=== PATIENT | male | born 1980 | race African-American/Black ===

== ENCOUNTER 2023-02-17 18:13 | Emergency (ER) | payer OTHER ==
--- NOTE | 2023-02-17 18:17 | ED ---
Abdominal Pain HPI - General Source: patient, RN notes reviewed <Jo-Ann Savage - Last Filed: 02/17/23 18:16> - General Source: RN notes reviewed, old records reviewed Mode of arrival: EMS Limitations: no limitations - History of Present Illness MD Complaint: abdominal pain -: days(s) Location: epigastric Radiation: epigastric Migration to: epigastric Severity: severe Severity scale (1-10): 8 Quality: stabbing Consistency: constant Improves With: nothing Associated Symptoms: nausea, vomiting Treatments Prior to Arrival: other (0) <Glen Lux - Last Filed: 02/28/23 18:25> - General Stated Complaint: abd pain-pancreatitis Time Seen by Provider: 02/17/23 18:16 - History of Present Illness Initial Comments: Patient is a 42-year-old male presented ER with chief complaint of abdominal pain. Patient states he was recently released from hospital for further pancreatitis. Patient states he thinks it's coming back. Patient denies any fevers, chills, night sweats. He is endorsing some shortness of breath but denies chest pain. (Jo-Ann Savage) This is a 42-year-old male to the emergency department today for evaluation of severe abdominal pain with known history of pancreatitis and states pain that today is significant and similar to prior episodes of pancreatitis (Glen Lux) - Related Data Allergies Allergy/AdvReac Type Severity Reaction Status Date / Time lisinopril Allergy Unknown Verified 02/17/23 18:28 promethazine Allergy Unknown Verified 02/17/23 18:28 Review of Systems ROS Other: All systems not noted in ROS Statement are negative. <Jo-Ann Savage - Last Filed: 02/17/23 18:16> ROS Other: All systems not noted in ROS Statement are negative. <Glen Lux - Last Filed: 02/28/23 18:25> ROS Statement: Those systems with pertinent positive or pertinent negative responses have been documented in the HPI. General Exam <Jo-Ann Savage - Last Filed: 02/17/23 18:16> General appearance: alert, in no apparent distress, anxious Head exam: Present: atraumatic, normocephalic, normal inspection Eye exam: Present: normal appearance, PERRL, EOMI. Absent: scleral icterus, conjunctival injection, periorbital swelling ENT exam: Present: normal exam, mucous membranes moist Neck exam: Present: normal inspection. Absent: tenderness, meningismus, lymphadenopathy Respiratory exam: Present: normal lung sounds bilaterally. Absent: respiratory distress, wheezes, rales, rhonchi, stridor Cardiovascular Exam: Present: regular rate, normal rhythm, normal heart sounds. Absent: systolic murmur, diastolic murmur, rubs, gallop, clicks GI/Abdominal exam: Present: soft, distended, tenderness, guarding, normal bowel sounds. Absent: rebound, rigid Extremities exam: Present: normal inspection, full ROM, normal capillary refill. Absent: tenderness, pedal edema, joint swelling, calf tenderness Back exam: Present: normal inspection Neurological exam: Present: alert, oriented X3, CN II-XII intact Psychiatric exam: Present: normal affect, normal mood Skin exam: Present: warm, dry, intact, normal color. Absent: rash <Glen Lux - Last Filed: 02/28/23 18:25> - General Exam Comments Initial Comments: Visual Physical Exam Vital signs reviewed General:Nontoxic, patient is hunched over and appears in pain Head: Normocephalic, atraumatic Eyes: PERRLA, EOMI ENT: Airway patent Chest: Nonlabored breathing Skin: No visual rash, normal skin tone Neuro: Alert and oriented 3 Musculoskeletal: No gross abnormalities (Jo-Ann Savage) Course <Glen Lux - Last Filed: 02/28/23 18:25> Vital Signs 02/17/23 02/18/23 18:23 04:27 Temperature 97.7 F 98.1 F Pulse Rate 87 81 Respiratory 16 18 Rate Blood Pressure 142/102 138/102 O2 Sat by Pulse 100 98 Oximetry - Reevaluation(s) Reevaluation #1: 02/18/23 05:57 Records reviewed (Glen Lux) Reevaluation #2: 02/18/23 05:57 Patient's pain is improved (Glen Lux) Reevaluation #3: 02/18/23 05:57 Patient informed results questions answered (Glen Lux) Reevaluation #4: 02/18/23 05:58 Was pt. sent in by a medical professional or institution ([facility]I Montero, [employer]ER, urgent care, hospital, or correction...) When possible be specific @ -no Did you speak to anyone other than the patient for history (EMS, parent, family, police, friend...)? What history was obtained from this source @ -no Did you review nursing and triage notes (agree or disagree)? Why? @ -agree Are old charts reviewed (outside hosp., previous admission, EMS record, old EKG, old radiological studies, urgent care reports/EKG's, correction records)? Report findings @ -yes Differential Diagnosis (chest pain, altered mental status, abdominal pain women, abdominal pain men, vaginal bleeding, weakness, fever, dyspnea, syncope, headache, dizziness, GI bleed, back pain, seizure, CVA, palpatations, mental health, musculoskeletal)? @ -prior EKG interpreted by me (3pts min.). @ -yes X-rays interpreted by me (1pt min.). @ -no CT interpreted by me (1pt min.). @ -yes positive for edematous pancreatitis U/S interpreted by me (1pt. min.). @ -no What testing was considered but not performed or refused? (CT, X-rays, U/S, labs)? Why? @ -none What meds were considered but not given or refused? Why? @ -none Did you discuss the management of the patient with other professionals (professionals i.e. VICKI Montero, POT P[employer]ER, lab, RT, psych nurse, school social worker, production tool engineer, teacher, air crew officer, catalytic case operator)? Give summary @ -no Was smoking cessation discussed for >3mins.? @ -no Was critical care preformed (if so, how long)? @ -no Were there social determinants of health that impacted care today? How? (Homelessness, low income, unemployed, alcoholism, drug addiction, transportation, low edu. Level, literacy, decrease access to med. care, assisted, rehab)? @ -none Was there de-escalation of care discussed even if they declined (Discuss DNR or withdrawal of care, Hospice)? DNR status @ -no What co-morbidities impacted this encounter? (DM, HTN, Smoking, COPD, CAD, Cancer, CVA, ARF, Chemo, Hep., AIDS, mental health diagnosis, sleep apnea, morb id obesity)? @ -none Was patient admitted / discharged? Hospital course, mention meds given and rou te, prescriptions, significant lab abnormalities, going to OR and other pertinent info. @ - 42 male with significant acute pancreatitis computed tomography scan findings positive for pancreatic pseudocyst with edematous pancreatic disease of pancreatitis no transfer for nothing by mouth status and GI evaluation Transferred to [facility] Admitted Undiagnosed new problem with uncertain prognosis? @ -no Drug Therapy requiring intensive monitoring for toxicity (Heparin, Nitro, Insulin, Cardizem)? @ -no Were any procedures done? @ -no Diagnosis/symptom? @ -Abdominal pain with pancreatitis Acute, or Chronic, or Acute on Chronic? @ -Acute Uncomplicated (without systemic symptoms) or Complicated (systemic symptoms)? @ -Complicated Side effects of treatment? @ -no Exacerbation, Progression, or Severe Exacerbation? @ -exacerbation Poses a threat to life or bodily function? How? (Chest pain, [place], [place], pneumonia, PE, COPD, DKA, ARF, appy, cholecystitis, CVA, Diverticulitis, Homicidal, Suicidal, threat to staff... and all critical care pts) @ -yes significant pancreatitis (Glen Lux) Reevaluation #5: 02/18/23 05:57 Differential Abdominal Pain Men: Appendicitis, cholecystitis, diverticulosis, ischemic bowel, pancreatitis, hepatitis, UTI, gastroenteritis, AAA, incarcerated hernia, bowel obstruction, constipation, inflammatory bowel, hepatitis, peptic ulcer disease, splenic infarction, perforated viscus, testicular torsion, this is not meant to be an all-inclusive list (Glen Lux) - Consultations Consultation #1: spoke with [facility] who accepts this patient in transfer (Glen Lux) Medical Decision Making <Jo-Ann Savage - Last Filed: 02/17/23 18:16> - Lab Data Result diagrams: 02/17/23 20:11 02/17/23 20:11 - Radiology Data Radiology results: report reviewed (CT of the abdomen and pelvis is positive for edematous pancreatitis with pseudocyst), image reviewed <Glen Lux - Last Filed: 02/28/23 18:25> - Medical Decision Making I performed the quick note portion of the exam. Electronically signed by Jo-Ann Savage PA-C (Jo-Ann Savage) 42 male with significant acute pancreatitis computed tomography scan findings positive for pancreatic pseudocyst with edematous pancreatic disease of pancreatitis no transfer for nothing by mouth status and GI evaluation (Glen Lux) - Lab Data Lab Results 02/17/23 02/17/23 02/17/23 Range/Units 18:30 20:11 20:11 WBC 4.8 (3.8-10.6) k/uL RBC 4.01 L (4.30-5.90) m/uL Hgb 13.7 (13.0-17.5) gm/dL Hct 39.6 (39.0-53.0) % MCV 98.8 (80.0-100.0) fL MCH 34.2 (25.0-35.0) pg MCHC 34.7 (31.0-37.0) g/dL RDW 13.7 (11.5-15.5) % Plt Count 222 (150-450) k/uL MPV 8.4 Sodium 140 (137-145) mmol/L Potassium 3.8 (3.5-5.1) mmol/L Chloride 97 L (98-107) mmol/L Carbon Dioxide 31 H (22-30) mmol/L Anion Gap 12 mmol/L BUN 9 (9-20) mg/dL Creatinine 0.51 L (0.66-1.25) mg/dL Est GFR (CKD-EPI)AfAm >90 (>60 ml/min/1.73 sqM) Est GFR (CKD-EPI)NonAf >90 (>60 ml/min/1.73 sqM) Glucose 106 H (74-99) mg/dL Plasma Lactic Acid Zeeshan (0.7-2.0) mmol/L Calcium 10.2 (8.4-10.2) mg/dL Total Bilirubin 0.4 (0.2-1.3) mg/dL AST 45 (17-59) U/L ALT 24 (4-49) U/L Alkaline Phosphatase 79 (38-126) U/L Total Protein 8.4 H (6.3-8.2) g/dL Albumin 4.9 (3.5-5.0) g/dL Amylase 157 H (30-110) U/L Lipase 545 H (23-300) U/L Urine Color Yellow Urine Appearance Clear (Clear) Urine pH 8.0 (5.0-8.0) Ur Specific [place] 1.025 (1.001-1.035) Urine Protein Trace H (Negative) Urine Glucose (UA) Negative (Negative) Urine Ketones Negative (Negative) Urine Blood Negative (Negative) Urine Nitrite Negative (Negative) Urine Bilirubin Negative (Negative) Urine Urobilinogen 2.0 (<2.0) mg/dL Ur Leukocyte Esterase Negative (Negative) 02/17/23 Range/Units 20:11 WBC (3.8-10.6) k/uL RBC (4.30-5.90) m/uL Hgb (13.0-17.5) gm/dL Hct (39.0-53.0) % MCV (80.0-100.0) fL MCH (25.0-35.0) pg MCHC (31.0-37.0) g/dL RDW (11.5-15.5) % Plt Count (150-450) k/uL MPV Sodium (137-145) mmol/L Potassium (3.5-5.1) mmol/L Chloride (98-107) mmol/L Carbon Dioxide (22-30) mmol/L Anion Gap mmol/L BUN (9-20) mg/dL Creatinine (0.66-1.25) mg/dL Est GFR (CKD-EPI)AfAm (>60 ml/min/1.73 sqM) Est GFR (CKD-EPI)NonAf (>60 ml/min/1.73 sqM) Glucose (74-99) mg/dL Plasma Lactic Acid Zeeshan 1.1 (0.7-2.0) mmol/L Calcium (8.4-10.2) mg/dL Total Bilirubin (0.2-1.3) mg/dL AST (17-59) U/L ALT (4-49) U/L Alkaline Phosphatase (38-126) U/L Total Protein (6.3-8.2) g/dL Albumin (3.5-5.0) g/dL Amylase (30-110) U/L Lipase (23-300) U/L Urine Color Urine Appearance (Clear) Urine pH (5.0-8.0) Ur Specific [place] (1.001-1.035) Urine Protein (Negative) Urine Glucose (UA) (Negative) Urine Ketones (Negative) Urine Blood (Negative) Urine Nitrite (Negative) Urine Bilirubin (Negative) Urine Urobilinogen (<2.0) mg/dL Ur Leukocyte Esterase (Negative) Disposition <Jo-Ann Savage - Last Filed: 02/17/23 18:16> Is patient prescribed a controlled substance at d/c from ED?: No Time of Disposition: 04:30 - Out of Hospital Transfer - Req. Specs Out of Hospital Transfer - Requested Specifics: Other Emergency Center ([facility]) <Glen Lux - Last Filed: 02/28/23 18:25> Clinical Impression: Pancreatitis, Abdominal pain, Nausea & vomiting Disposition: OTHER INSTITUTION NOT DEFINED Condition: Fair Referrals: None,Stated [Primary Care Provider] - 1-2 days
[2023-02-17 18:55] LABS: Appearance,Urine Clear (Clear); Bilirubin,Urine Negative (Negative); Blood,Urine Negative (Negative); Color,Urine Yellow; Glucose,Urine (UA) Negative (Negative); Ketones,Urine Negative (Negative); Leukocyte Esterase,Urine Negative (Negative); Nitrite,Urine Negative (Negative); Protein,Urine Trace (Negative); Specific Gravity,Urine 1.025 (1.001-1.035)
--- NOTE | 2023-02-17 19:31 | CT ---
EXAMINATION TYPE: CT abdomen pelvis wo con CT DLP: 291.6 mGycm, Automated exposure control for dose reduction was used. DATE OF EXAM: 02/17/2023 7:21 PM COMPARISON: None. CLINICAL INDICATION:Male, 42 years old with history of pain; right side abd pain, hx of pancreatitis TECHNIQUE: Axial CT of the abdomen and pelvis. Sagittal and coronal reformats were created on a [employer] workstation. Contrast used: none if empty) Oral contrast used: without Oral Contrast (none if empty) FINDINGS: LOWER CHEST: Unremarkable ABDOMEN LIVER: Unremarkable GALLBLADDER AND BILE DUCTS: Unremarkable. PANCREAS: The pancreatic head and neck are prominent and also appear slightly hypoattenuating. There are subtle surrounding peripancreatic inflammatory changes. 2 subcentimeter low attenuating foci are noted within the region of the pancreatic head. SPLEEN: Unremarkable. ADRENAL GLANDS: Unremarkable. KIDNEYS AND URETERS: No evidence of hydronephrosis or renal calculus. The ureters are unremarkable. PELVIS BLADDER: Unremarkable REPRODUCTIVE: Unremarkable. ABDOMEN & PELVIS STOMACH AND BOWEL: Stomach is prominent debris-filled. Of note, the medial wall of the second portion of the duodenum is also prominent, likely reactive due to adjacent inflammation. No evidence of pablo l obstruction. PERITONEUM/RETROPERITONEUM: No evidence of pneumoperitoneum or free fluid. VASCULATURE: Mild atherosclerotic calcifications are present throughout the abdominal aorta and its b ranches. No evidence of aortic aneurysm. MUSCULOSKELETAL: No acute osseous abnormalities LYMPH NODES: A few prominent gastrohepatic lymph nodes, likely reactive. SOFT TISSUE/ABDOMINAL WALL: Unremarkable IMPRESSION: 1. Findings most consistent with acute interstitial edematous pancreatitis. 2. Low attenuating foci within the pancreatic head, favored to represent pseudocysts from sequela of prior pancreatitis. 3. Reactive changes of the duodenum, secondary to impression #1.
[2023-02-17 20:23] LABS: HCT 39.6 % (39.0-53.0); HGB 13.7 gm/dL (13.0-17.5); MCH 34.2 pg (25.0-35.0); MCHC 34.7 g/dL (31.0-37.0); MCV 98.8 fL (80.0-100.0); Mean Platelet Volume 8.4; Platelet Count 222 k/uL (150-450); RBC 4.01 m/uL (4.30-5.90); RDW 13.7 % (11.5-15.5); WBC 4.8 k/uL (3.8-10.6)
[2023-02-17 20:32] LABS: ALT 24 U/L (4-49); AST 45 U/L (17-59); African American GFR (CKD) >90 (>60 ml/min/1.73 sqM); Albumin 4.9 g/dL (3.5-5.0); Alkaline Phosphatase 79 U/L (38-126); Amylase 157 U/L (30-110); Anion Gap 12 mmol/L; Blood Urea Nitrogen 9 mg/dL (9-20); Calcium 10.2 mg/dL (8.4-10.2); Carbon Dioxide 31 mmol/L (22-30); Chloride 97 mmol/L (98-107); Glucose 106 mg/dL (74-99); Lipase 545 U/L (23-300); Non-African American GFR(CKD) >90 (>60 ml/min/1.73 sqM); Potassium 3.8 mmol/L (3.5-5.1); Sodium 140 mmol/L (137-145); Total Bilirubin 0.4 mg/dL (0.2-1.3); Total Protein 8.4 g/dL (6.3-8.2)
[2023-02-18 05:06] VITALS: BP 138/102; PULSE 81; RESP 18; TEMP 98.1
== END 2023-02-18 10:00 | disposition other institution (70) ==
LOC: EDBD → EC 18:13
DX: K85.90 Acute pancreatitis without necrosis or infection, unspecified (principal); Z88.8 Allergy status to other drugs, medicaments and biological substances
CPT/HCPCS: 36415; 74176; 80053; 81003; 82150; 83605; 83690; 85027; 99285

== ENCOUNTER 2023-03-01 19:09 | Emergency (ER) | payer OTHER ==
[2023-03-01 19:48] VITALS: BP 116/79; PULSE 91; RESP 18; TEMP 98.7
--- NOTE | 2023-03-01 21:05 | XR ---
EXAMINATION TYPE: XR Hip Complete RT DATE OF EXAM: 03/01/2023 8:48 PM CLINICAL INDICATION:Male, 42 years old with history of fall; [facility] COMPARISON: None. TECHNIQUE: XR Hip Complete RT; hip was examined in the frontal and lateral projections and a AP pelvi s. FINDINGS: No evidence for acute process, joint dislocation or significant soft tissue swelling. Osteo phyte formation of the superior acetabulum of the hip. IMPRESSION: 1. No evidence for acute process. 2. Mild hip osteoarthrosis.
--- NOTE | 2023-03-01 21:58 | CT ---
EXAMINATION TYPE: CT brain cspine wo con CT DLP: 1330.5 mGycm, Automated exposure control for dose reduction was used. DATE OF EXAM: 03/01/2023 9:49 PM COMPARISON: None. CLINICAL INDICATION:Male, 42 years old with history of fall; Fall, Hit head. No LOC, Pt is on blood t hinners. TECHNIQUE: Brain: Multiple axial CT images of the brain were obtained without IV contrast. Cspine: Axial CT images from the skull base to the inferior aspect of T2 we obtained without intraven ous contrast. Coronal and sagittal reformatted images were also reviewed. FINDINGS: Brain: Extra-axial spaces: No abnormal extra-axial fluid collections. Ventricular system: Within normal limits Cerebral parenchyma: No acute intraparenchymal hemorrhage or mass effect. The sherman-white junction is well differentiated. Cerebellum: Unremarkable. Mass effect: No evidence of midline shift. Intracranial vasculature: unremarkable Soft tissues: Normal. Calvarium/osseous structures: No depressed skull fracture. Paranasal sinuses and mastoid air cells: Clear. Visualized orbits: Orbital contents are intact. Cervical spine: Fracture: None. Osseous structures: Mild degeneration changes with osteophyte formation, facet joint arthropathy and uncovertebral joint arthropathy. Vertebral alignment: Within normal limits. Spinal canal/Neural Foramina: No evidence of significant spinal canal narrowing. No evidence for sign ificant neural foraminal stenosis. Neck soft tissues: Prevertebral soft tissues are within normal limits. Other: The airway is patent. Scattered thin-walled cystic changes are seen throughout the lungs. IMPRESSION: 1. No acute intracranial process. 2. No evidence of cervical spine fracture. 3. Mild multilevel degenerative disc disease. 4. Thin-walled air cysts are scattered throughout the lungs, these are partially visualized. Conside r complete evaluation with CT chest.
--- NOTE | 2023-03-01 22:05 | ED ---
Fall HPI - General Chief Complaint: Fall Stated Complaint: Head Injury Source: patient, RN notes reviewed, old records reviewed Mode of arrival: EMS Limitations: no limitations - History of Present Illness Initial Comments: This is a 42-year-old male to the ER today for evaluation of fall. Patient of fall from standing complaining of hip pain and had. No loss of consciousness but does have a persistent headache here in the emergency department. Patient is no travel history no sick contacts no other complaints. 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 Fall Witnessed: no Place Fall Occurred: home Loss of Consciousness: none Prolonged Down Time?: no Symptoms Prior to Fall: none Location: head, pelvis Location - Extremities: Left: Thigh, Right: Thigh Severity: severe Severity scale (1-10): 9 Quality: dull, aching Context: tripped/slipped Associated Symptoms: headache - Related Data Allergies Allergy/AdvReac Type Severity Reaction Status Date / Time lisinopril Allergy Unknown Verified 03/02/23 14:42 promethazine Allergy Unknown Verified 03/02/23 14:42 Review of Systems ROS Statement: Those systems with pertinent positive or pertinent negative responses have been documented in the HPI. ROS Other: All systems not noted in ROS Statement are negative. Past Medical History Past Medical History: Hypertension History of Any Multi-Drug Resistant Organisms: None Reported Past Surgical History: No Surgical Hx Reported Past Psychological History: No Psychological Hx Reported Smoking Status: Current every day smoker Past Alcohol Use History: Rare Past Drug Use History: None Reported General Exam Limitations: no limitations General appearance: alert, in no apparent distress Head exam: Present: atraumatic, normocephalic, normal inspection Eye exam: Present: normal appearance, PERRL, EOMI. Absent: scleral icterus, conjunctival injection, periorbital swelling ENT exam: Present: normal exam, mucous membranes moist Neck exam: Present: normal inspection. Absent: tenderness, meningismus, lymphadenopathy Respiratory exam: Present: normal lung sounds bilaterally. Absent: respiratory distress, wheezes, rales, rhonchi, stridor Cardiovascular Exam: Present: regular rate, normal rhythm, normal heart sounds. Absent: systolic murmur, diastolic murmur, rubs, gallop, clicks GI/Abdominal exam: Present: soft, normal bowel sounds. Absent: distended, tenderness, guarding, rebound, rigid Extremities exam: Present: normal inspection, full ROM, normal capillary refill. Absent: tenderness, pedal edema, joint swelling, calf tenderness Back exam: Present: normal inspection Neurological exam: Present: alert, oriented X3, CN II-XII intact Psychiatric exam: Present: normal affect, normal mood Skin exam: Present: warm, dry, intact, normal color. Absent: rash Course Vital Signs 03/01/23 19:40 Temperature 98.7 F Pulse Rate 91 Respiratory 18 Rate Blood Pressure 116/79 O2 Sat by Pulse 99 Oximetry - Reevaluation(s) Reevaluation #1: Medical records reviewed Reevaluation #2: Patient symptoms improved Reevaluation #3: Patient informed of results and questions answered Reevaluation #4: Was pt. sent in by a medical professional or institution (, VICKI, PROFESSOR OF MEDICINE, urgent c are, hospital, or [facility]...) When possible be specific @ -no Did you speak to anyone other than the patient for history (EMS, parent, family, police, friend...)? What history was obtained from this source @ -no Did you review nursing and triage notes (agree or disagree)? Why? @ -agree Are old charts reviewed (outside hosp., previous admission, EMS record, old EKG, old radiological studies, urgent care reports/EKG's, [facility] records)? Report findings @ -yes Differential Diagnosis (chest pain, altered mental status, abdominal pain women, abdominal pain men, vaginal bleeding, weakness, fever, dyspnea, syncope, headache, dizziness, GI bleed, back pain, seizure, CVA, palpatations, mental health, musculoskeletal)? @ -prior EKG interpreted by me (3pts min.). @ -no X-rays interpreted by me (1pt min.). @ -yes negative for acute disease CT interpreted by me (1pt min.). @ -yes negative for acute disease U/S interpreted by me (1pt. min.). @ -no What testing was considered but not performed or refused? (CT, X-rays, U/S, labs)? Why? @ -none What meds were considered but not given or refused? Why? @ -none Did you discuss the management of the patient with other professionals (professionals i.e. , PA, PROFESSOR OF MEDICINE, lab, RT, psych nurse, mental health social worker, manager java, teacher, fire management officer, welfare case worker)? Give summary @ -no Was smoking cessation discussed for >3mins.? @ -no Were there social determinants of health that impacted care today? How? (Homelessness, low income, unemployed, alcoholism, drug addiction, transportation, low edu. Level, literacy, decrease access to med. care, fpc, rehab)? @ -none Was there de-escalation of care discussed even if they declined (Discuss DNR or withdrawal of care, Hospice)? DNR status @ -no What co-morbidities impacted this encounter? (DM, HTN, Smoking, COPD, CAD, Cancer, CVA, ARF, Chemo, Hep., AIDS, mental health diagnosis, sleep apnea, morbid obesity)? @ -none Was patient admitted / discharged? Hospital course, mention meds given and route, prescriptions, significant lab abnormalities, going to OR and other pertinent info. @ - 42 male with to the emergency department mechanical fall patient has no acute traumatic injury noted here in the ER, imaging is negative and he can be discharged home Discharge Was critical care preformed (if so, how long)? @ -no Undiagnosed new problem with uncertain prognosis? @ -no Drug Therapy requiring intensive monitoring for toxicity (Heparin, Nitro, Insulin, Cardizem)? @ -no Were any procedures done? @ -no Diagnosis/symptom? @ -Head injury, fall, hip pain Acute, or Chronic, or Acute on Chronic? @ -Acute Uncomplicated (without systemic symptoms) or Complicated (systemic symptoms)? @ -Complicated Side effects of treatment? @ -no Exacerbation, Progression, or Severe Exacerbation? @ -exacerbation Poses a threat to life or bodily function? How? (Chest pain, [place], [place], pneumonia, PE, COPD, DKA, ARF, appy, cholecystitis, CVA, Diverticulitis, Homicidal, Suicidal, threat to staff... and all critical care pts) @ -no Reevaluation #5: Differential Headache: Migraine, tension, cluster, carbon monoxide, central venous thrombosis, pension karma temporal arteritis, acute closure glaucoma, intercranial hemorrhage, mastoiditis, sinusitis, head injury, this is not meant to be an all-inclusive list. Medical Decision Making - Medical Decision Making 42 male with to the emergency department mechanical fall patient has no acute traumatic injury noted here in the ER, imaging is negative and he can be discharged home - Radiology Data Radiology results: report reviewed (CT brain C-spine and hip x-ray negative for traumatic injury), image reviewed Disposition Clinical Impression: Fall, Right hip pain, Head injury Disposition: HOME SELF-CARE Condition: Good Instructions (If sedation given, give patient instructions): Head Injury (ED), Contusion in Adults (ED) Is patient prescribed a controlled substance at d/c from ED?: No Referrals: None,Stated [Primary Care Provider] - 1-2 days Time of Disposition: 22:00
== END 2023-03-01 22:34 | disposition home or self-care (01) ==
LOC: EC 19:09 → MERGE 19:09 → EC 22:34
DX: S09.90XA Unspecified injury of head, initial encounter (principal); M25.551 Pain in right hip; I10 Essential (primary) hypertension; F17.200 Nicotine dependence, unspecified, uncomplicated; Z88.8 Allergy status to other drugs, medicaments and biological substances; W01.0XXA Fall on same level from slipping, tripping and stumbling without subsequent striking against object, initial encounter; Y92.009 Unspecified place in unspecified non-institutional (private) residence as the place of occurrence of the external cause
CPT/HCPCS: 70450; 72125; 73502; 99284